=== PATIENT | male | born 1970 | race Caucasian/White ===

== ENCOUNTER 2022-05-10 07:09 | Day surgery (SDC) | payer MEDICAID ==
[2022-05-10] MEDS ORDERED: Propofol 200 MG/20 ML SDV ONE ×2 (07:29→08:57)
[2022-05-10] MEDS ORDERED: fentaNYL 50 MCG/ML SDV ONE (07:29)
[2022-05-10] MEDS ORDERED: Sodium Chloride 0.9% 1,000 ML IV SCH (08:00)
[2022-05-10 09:54] VITALS: BP 129/88; PULSE 74
== END 2022-05-10 09:58 | disposition home or self-care (01) ==
LOC: JP.SDS 07:09
PROVIDERS: ATTEND Surgery
DX: Z12.11 Encounter for screening for malignant neoplasm of colon (principal); K64.8 Other hemorrhoids; I10 Essential (primary) hypertension; Z79.899 Other long term (current) drug therapy
CPT/HCPCS: 45398; J2704; J3010; J7030